=== PATIENT | female | born 1950 | race African-American/Black ===

== ENCOUNTER 2016-11-02 14:51 | Emergency (ER) | payer MEDICARE ==
[~2016-11-02 14:51] MED LIST: AMLO10TA4 PO; ASPI-482 PO; ATEN50TA PO; B12/1TAB3 PO; BIOT1000 PO; CEPH-264 PO; CRAN400C PO; HYDR-2666 PO; LISI1TAB7 PO; MULT-208 PO; PARO10TA24 PO; PHEN100T82 PO
[2016-11-02 15:16] VITALS: BP 134/90
[2016-11-02] MEDS ORDERED: PENI500T PO (15:40)
[2016-11-02] MEDS ORDERED: OXYC5CAP3 PO (15:40)
--- NOTE | 2016-11-02 15:40 | PHYS DOC ---
Past Medical History Past Medical History: Depression, Hypertension Additional Past Medical Histor: polycystic kidney disease,chronic UTI's Past Surgical History: Appendectomy, Cholecystectomy, Hysterectomy, Tonsillectomy Additional Past Surgical Histo: HYSTERECTOMY Alcohol Use: None Drug Use: None Adult General Chief Complaint Chief Complaint: DENTAL PROBLEM HPI HPI Patient is a 66 year old female who presents with dental pain. The patient reports approximately 1 month history of increased dental pain to left maxillary and mandibular teeth with severe decay and chipped teeth. Reports increased facial swelling over the past 2 days. Denies fevers or chills, trismus , difficulty breathing or swallowing. He has been taking hydrocodone at home ( which she is prescribed monthly for knee pain) without relief of symptoms. Does not have a dentist. Review of Systems Review of Systems Constitutional: Denies fever or chills HENT: Reports dental pain Respiratory: Denies cough or shortness of breath Cardiovascular: Denies chest pain GI: Denies abdominal pain, nausea, vomiting Integument: Denies rash or skin lesions Neurologic: Denies headache Current Medications Current Medications Current Medications Medications (Trade) Dose Ordered Sig/Malu Start Time Stop Time Status Last Admin Dose Admin Oxycodone HCl (Roxicodone) 5 mg 1X ONCE 11/02/16 16:00 11/02/16 16:01 DC Allergies Allergies Allergies Coded Allergies Type Severity Reaction Last Updated Verified adhesive tape Allergy Intermediate 02/02/16 Yes Physical Exam Physical Exam Constitutional: Well developed, well nourished, no acute distress, non-toxic appearance. HENT: Normocephalic, atraumatic, bilateral external ears normal, oropharynx moist, nose normal. Numerous absent teeth, tooth #9 and 22 severely decayed with surrounding gingival erythema, no palpable abscess, no trismus, minimal left-sided facial swelling Eyes: conjunctiva normal, no discharge. Cardiovascular: no edema. Lungs & Thorax: no respiratory distress. Abdomen: nondistended. Skin: Warm, dry, Extremities: No deformity Neurologic: Alert and oriented X 3 Current Patient Data Vital Signs Vital Signs Date Time Temp Pulse Resp B/P (MAP) Pulse Ox O2 Delivery O2 Flow Rate FiO2 11/02/16 15:16 98.3 87 16 98 Room Air 98.3 EKG EKG [] Radiology/Procedures Radiology/Procedures [] Course & Med Decision Making Course & Med Decision Making Pertinent Labs and Imaging studies reviewed. (See chart for details) The patient presents with dental pain. Gave oxycodone here for pain. She has a family member to drive her home. Recommend follow up with dentist as soon as possible. Gave prescription for penicillin VK, & oxycodone to take as needed for severe breakthrough pain, 10 tablets, additional pain medication not be given through the emergency department for same complaint. Provided with dental clinic list. Return to the emergency department for difficulty breathing or swallowing, or any otherwise worsening condition. Discharged home in stable condition. [] Dragon Disclaimer Dragon Disclaimer This electronic medical record was generated, in whole or in part, using a voice recognition dictation system. Departure Departure Impression: Primary Impression: Dental infection Disposition: HOME, SELF-CARE Condition: STABLE Referrals: BENITA ALVARADO Jr, MD (PCP) Patient Instructions: Dental Pain, [id number] Additional Instructions: You were seen in the emergency department today for dental pain. Please take antibiotics & you may use pain medication as needed. No drinking alcohol or driving while taking this medication. Follow up as soon as possible with a dentist. Come back for difficulty breathing or swallowing, or any otherwise worsening condition. Scripts Oxycodone Hcl (OXYCODONE HCL) 5 Mg Capsule 5 MG PO Q6HRS Y for PAIN, #10 TAB 0 Refills Prov: AMARA BLANK MD 11/02/16 Penicillin V Potassium (PENICILLIN V POTASSIUM) 500 Mg Tablet 500 MG PO QID for 7 Days, TAB 0 Refills Prov: AMARA BLANK MD 11/02/16 AMARA BLANK MD November 02, 2016 15:40
[2016-11-02] MEDS ORDERED: oxyCODONE IR 5 MG TABLET PO ONE (16:00)
== END 2016-11-02 15:45 | disposition home or self-care (01) ==
LOC: ER 15:26
DX: K04.7 Periapical abscess without sinus (principal); I10 Essential (primary) hypertension; Q61.3 Polycystic kidney, unspecified; Z90.49 Acquired absence of other specified parts of digestive tract; Z90.710 Acquired absence of both cervix and uterus; Z87.440 Personal history of urinary (tract) infections; Z88.8 Allergy status to other drugs, medicaments and biological substances
CPT/HCPCS: 99283

== ENCOUNTER 2018-04-10 15:46 | Emergency (ER) | payer MEDICARE ==
[~2018-04-10] VITALS: Ht 170.2 cm; Wt 71.7 kg
[~2018-04-10 15:46] MED LIST changes: -HYDR-2666 PO; +HYDR-2758 PO; +OXYC5CAP PO; -PARO10TA24 PO; +PARO10TA57 PO; +PENI500T PO
[2018-04-10] MEDS: CYCLOBENZAPRINE 10 MG TABLET. PO ONE (16:13)
[2018-04-10] MEDS: NAPROXEN 500 MG TABLET PO STA (16:14)
[2018-04-10] MEDS: HYDROcodone/APAP 5/325MG 1 TAB TABLET PO ONE (16:14)
--- NOTE | 2018-04-10 16:17 | PHYS DOC ---
Past Medical History Past Medical History: Depression, Hypertension Additional Past Medical Histor: polycystic kidney disease,chronic UTI's Past Surgical History: Appendectomy, Cholecystectomy, Hysterectomy, Tonsillectomy Additional Past Surgical Histo: HYSTERECTOMY Alcohol Use: None Drug Use: None Adult General Chief Complaint Chief Complaint: LOWER EXT PAIN HPI HPI Patient is a 67 year old female with history of hypertension, depression, who presents today with 8 out of 10 left lateral hip pain that began yesterday. Patient states she was ambulating and her leg gave out. Patient denies falling. States pain is worse on weight bearing. Describes the pain as throbbing and intermittent. Review of Systems Review of Systems Constitutional: Denies fever or chills [] GI: Denies abdominal pain, nausea, vomiting, bloody stools or diarrhea [] : Denies dysuria or hematuria [] Musculoskeletal: Reports left lateral hip pain Integument: Denies rash or skin lesions [] Neurologic: Denies headache, focal weakness or sensory changes [] All other systems were reviewed and found to be within normal limits, except as documented in this note. Current Medications Current Medications Current Medications Medications (Trade) Dose Ordered Sig/Malu Start Time Stop Time Status Last Admin Dose Admin Acetaminophen/ Hydrocodone Bitart (Lortab 5/325) 2 tab 1X ONCE 04/10/18 16:15 04/10/18 16:16 DC 04/10/18 16:14 2 TAB Cyclobenzaprine HCl (Flexeril) 10 mg 1X ONCE 04/10/18 16:15 04/10/18 16:16 DC 04/10/18 16:13 10 MG Naproxen (Naprosyn) 500 mg 1X STAT 04/10/18 16:09 04/10/18 16:10 DC 04/10/18 16:14 500 MG Allergies Allergies Allergies Coded Allergies Type Severity Reaction Last Updated Verified adhesive tape Allergy Intermediate 02/02/16 Yes Physical Exam Physical Exam Constitutional: Well developed, well nourished, no acute distress, non-toxic appearance. [] Skin: Warm, dry, no erythema, no rash. [] Back: No tenderness, no CVA tenderness. [] Extremities: Diffuse tenderness on palpation of the left lateral proximal hip, full passive range of motion to the left hip, adequate internal rotation and external rotation of the left hip. +2 left pedal pulse. Cap refill less than 2 seconds the left lower extremity., no cyanosis, no clubbing, no edema. [] Neurologic: Alert and oriented X 3, normal motor function, normal sensory function, no focal deficits noted. [] Psychologic: Affect normal, judgement normal, mood normal. [] Current Patient Data Vital Signs Vital Signs Date Time Temp Pulse Resp B/P (MAP) Pulse Ox O2 Delivery O2 Flow Rate FiO2 04/10/18 16:04 97.6 67 18 152/79 (103) 96 Room Air 97.6 EKG EKG [] Radiology/Procedures Radiology/Procedures []PROCEDURE: HIP LEFT 2V WITH PELVIS Single view pelvis and two-view left femur dated 04/10/2018. No comparison available. Clinical data indication: Pain. Unable to bear weight. History of left hip nailing. FINDINGS: single AP view pelvis shows normal bony alignment. No displaced fracture. The pelvic ring is intact. Mild hypertrophic change of the pubic symphysis. 2 views of left femur show an anterior grade intramedullary nail with interlocking screw at the femoral neck. There is deformity of the midshaft femur consistent with old healed fracture.There is cerclage wiring and pins at the patella. Mild degenerative change of the left knee joint. No periostitis or bone destruction. No new fracture identified. IMPRESSION: 1. No acute radiographic abnormality. 2. Status post ORIF left femur fracture and left patellar fracture. Electronically signed by: Lalito Mcrae MD (04/10/2018 4:58 PM) [id number] DICTATED and SIGNED BY: LALITO MCRAE MD DATE: 04/10/18 1652 Course & Med Decision Making Course & Med Decision Making Pertinent Labs and Imaging studies reviewed. (See chart for details) This is a 67-year-old female patient presenting to the ED today with left lateral hip pain, no known injury. Left hip, pelvic x-rays interpreted by radiologist are negative for any acute findings. Patient was discharged with instructions to follow-up with her orthopedic doctor next week. Ice elevation encouraged. Dragon Disclaimer Dragon Disclaimer This electronic medical record was generated, in whole or in part, using a voice recognition dictation system. Departure Departure Impression: Primary Impression: Left hip pain Disposition: 01 HOME, SELF-CARE Condition: STABLE Referrals: BENITA ALVARADO Jr, MD (PCP) follow up with your doctor in one week Patient Instructions: Hip Pain Additional Instructions: You were evaluated in the emergency room for left hip pain. Your x-rays are negative for any acute findings. Try to ice and elevate the extremity. Take the prescribed medications as needed for pain. Scripts Cyclobenzaprine Hcl (CYCLOBENZAPRINE HCL) 10 Mg Tablet 1 TAB PO TID, #30 TAB Prov: VLAD LIZARRAGA APRN 04/10/18 Diclofenac Sodium (DICLOFENAC SODIUM) 50 Mg Tablet.dr 1 TAB PO BID, #20 TAB 0 Refills Prov: VLAD LIZARRAGA APRN 04/10/18 VLAD LIZARRAGA APRN Apr 10, 2018 16:17
--- NOTE | 2018-04-10 17:02 | RAD ---
Single view pelvis and two-view left femur dated 04/10/2018. No comparison available. Clinical data indication: Pain. Unable to bear weight. History of left hip nailing. FINDINGS: single AP view pelvis shows normal bony alignment. No displaced fracture. The pelvic ring is intact. Mild hypertrophic change of the pubic symphysis. 2 views of left femur show an anterior grade intramedullary nail with interlocking screw at the femoral neck. There is deformity of the midshaft femur consistent with old healed fracture.There is cerclage wiring and pins at the patella. Mild degenerative change of the left knee joint. No periostitis or bone destruction. No new fracture identified. IMPRESSION: 1. No acute radiographic abnormality. 2. Status post ORIF left femur fracture and left patellar fracture. Electronically signed by: Lalito Mcrae MD (04/10/2018 4:58 PM) [id number]
[2018-04-10] MEDS ORDERED: CYCL10TA2 PO (17:16)
[2018-04-10] MEDS ORDERED: DICL50TA4 PO (17:16)
[2018-04-10 17:44] VITALS: BP 138/84
== END 2018-04-10 17:45 | disposition home or self-care (01) ==
LOC: ER 15:46
DX: M25.552 Pain in left hip (principal); I10 Essential (primary) hypertension; Z90.89 Acquired absence of other organs; Z90.49 Acquired absence of other specified parts of digestive tract; Z90.710 Acquired absence of both cervix and uterus; Z88.8 Allergy status to other drugs, medicaments and biological substances; X50.9XXA Other and unspecified overexertion or strenuous movements or postures, initial encounter; Y93.89 Activity, other specified; Y92.89 Other specified places as the place of occurrence of the external cause; Y99.8 Other external cause status
CPT/HCPCS: 73502; 99284

== ENCOUNTER 2019-05-02 20:23 | Emergency (ER) | payer MEDICARE, OTHER ==
[~2019-05-02] VITALS: Ht 172.7 cm; Wt 79.4 kg
[~2019-05-02 20:23] MED LIST changes: +CYCL10TA2 PO; +DICL50TA4 PO; -HYDR-2758 PO; +HYDR-2761 PO; +HYDR-3164 PO; +LISI-130 PO; +LISI1TAB20 PO; -LISI1TAB7 PO; +ONDA4TAB12 PO; +POLY17PO29 PO; +PRED20TA PO; +TAMS0.4C97 PO; +TIZA4CAP PO
[2019-05-02 20:48] LABS: BASO # 0.1 x10^3/uL (0.0-0.2); BASO % 1 % (0-3); EOS % 0 % (0-3); HEMATOCRIT 44.8 % (36.0-47.0); HEMOGLOBIN 14.9 g/dL (12.0-15.5); LYMPH # 1.6 x10^3/uL (1.0-4.8); LYMPH % 15 % (24-48); MEAN CORPUSCULAR HEMOGLOBIN 32 pg (25-35); MEAN CORPUSCULAR HGB CONC 33 g/dL (31-37); MEAN CORPUSCULAR VOLUME 97 fL (79-100); MONO # 0.4 x10^3/uL (0.0-1.1); MONO % 4 % (0-9); NEUT # 8.4 x10^3/uL (1.8-7.7); NEUT % 80 % (31-73); PLATELET COUNT 326 x10^3/uL (140-400); RED BLOOD COUNT 4.64 x10^6/uL (3.50-5.40); RED CELL DISTRIBUTION WIDTH 14.3 % (11.5-14.5); WHITE BLOOD COUNT 10.6 x10^3/uL (4.0-11.0)
[2019-05-02 20:49] LABS: BILIRUBIN,URINE NEGATIVE (NEG); CLARITY,URINE CLEAR; COLOR,URINE YELLOW; NITRITE,URINE NEGATIVE (NEG); PROTEIN,URINE 30 mg/dL (NEG-TRACE); UROBILINOGEN,URINE 0.2 mg/dL (0.2 mg/dL)
[2019-05-02 20:56] LABS: BARBITURATES NEG (NEG); BENZODIAZEPINES NEG (NEG); CANNABINOIDS POS (NEG); COCAINE NEG (NEG); METHADONE NEG (NEG); OPIATES NEG (NEG); PHENCYCLIDINE POS (NEG)
[2019-05-02 20:57] LABS: AMPHETAMINE/METHAMPHETAMINE NEG (NEG)
[2019-05-02 20:59] LABS: BACTERIA,URINE 0 /HPF (0-FEW); WBC,URINE OCC /HPF (0-4)
--- NOTE | 2019-05-02 21:38 | RAD ---
CT HEAD INDICATION: Altered mental status COMPARISON: None Available. Exposure: One or more of the following individualized dose reduction techniques were utilized for this examination: 1. Automated exposure control 2. Adjustment of the mA and/or kV according to patient size 3. Use of iterative reconstruction technique TECHNIQUE: 5 mm contiguous axial images were obtained from the skull base to the vertex in both bone and soft tissue algorithm. FINDINGS: No abnormal attenuation within the brain parenchyma. Cavum septum pellucidum identified. No evidence of acute intracranial hemorrhage. No extra-axial fluid collections. There is minimal hyperintensity to the basilar artery tip. No mass effect or midline shift. Ventricular size is appropriate. Basal cisterns are patent. No fractures identified.Flores-white differentiation is preserved.Globes and orbits are within normal limits. Paranasal sinuses and mastoid air cells are clear. IMPRESSION: Minimal hyperintense appearing basilar artery tip most likely physiological however if there is clinical suspicion for basilar tip thrombus recommend CT angiography or MRA for further evaluation. Electronically signed by: Reymundo De Jesus MD (05/02/2019 9:35 PM) [facility]
--- NOTE | 2019-05-02 21:45 | RAD ---
Examination: 2 views of the left humerus and 2 views of the left forearm HISTORY: History of fall, altered mental status COMPARISON: None available Findings/ impression: There is medial displaced acute fracture of the supracondylar portion of the humerus. Severe degenerative changes at the humeroulnar joint with large osteophyte formation however evaluation is limited due to positioning. Recommend elbow radiographs for further evaluation.Intramedullary nail identified transfixing the old mid diaphyseal humerus fracture. Small osteophyte formation identified in the radial head. Electronically signed by: Reymundo De Jesus MD (05/02/2019 9:42 PM) [facility]
--- NOTE | 2019-05-02 21:53 | RAD ---
EXAM: CHEST 1 VIEW History: Altered mental status COMPARISON: None available. TECHNIQUE: Single portable radiograph of the chest FINDINGS: Mild cardiomegaly. Prominent appearing mediastinum could be secondary to tortuous aorta. Mild bibasilar lung airspace opacities likely atelectasis or infiltrates. IMPRESSION: Mild left lung base airspace opacities likely atelectasis or infiltrates. Electronically signed by: Reymundo De Jesus MD (05/02/2019 9:50 PM) [facility]
[2019-05-02 22:05] LABS: CALCIUM 10.4 mg/dL (8.5-10.1); CREATININE 1.9 mg/dL (0.6-1.0); POTASSIUM 3.6 mmol/L (3.5-5.1)
[2019-05-02 22:07] LABS: ALBUMIN 4.8 g/dL (3.4-5.0); DIRECT BILIRUBIN 0.1 mg/dL (0.0-0.2); MAGNESIUM 2.4 mg/dL (1.8-2.4); TOTAL BILIRUBIN 0.6 mg/dL (0.2-1.0); TOTAL PROTEIN 9.3 g/dL (6.4-8.2)
[2019-05-02 22:16] VITALS: BP 156/98
--- NOTE | 2019-05-02 22:36 | PHYS DOC ---
Past Medical History Past Medical History: Unknown Additional Past Medical Histor: UNABLE TO ASSESS Past Surgical History: Other Additional Past Surgical Histo: UNABLE TO ASSESS Adult General Chief Complaint Chief Complaint: ALTERED MENTAL STATUS HPI HPI Patient is a 68-year-old female who presents via EMS with report of altered mental status. Patient reportedly was found in a homeowner's yard sitting in a lawn chair. EMS indicates that one of the neighbors was familiar with the patient and states that they see the patient on regular basis. EMS states that patient has been nonverbal since they picked her up and patient is not answering any questions at this time. Additional history is limited at this time as jane maxwell is not willing to answer any questions.[] Review of Systems Review of Systems Constitutional: Denies fever or chills [] Respiratory: No obvious shortness of breath [] Cardiovascular: No additional information not addressed in HPI [] GI: No reported vomiting or diarrhea [] Unable to fully assess review of systems as patient is not answering questions. Allergies Allergies Allergies Coded Allergies Type Severity Reaction Last Updated Verified Unable to Assess 05/02/19 No Physical Exam Physical Exam Constitutional: Well developed, well nourished, no acute distress, non-toxic appearance. [] HENT: Normocephalic, atraumatic, bilateral external ears normal, oropharynx moist, no oral exudates, nose normal. [] Eyes: PERRLA, EOMI, conjunctiva normal, no discharge. [] Neck: Normal range of motion, no tenderness, supple, no stridor. [] Cardiovascular: Regular rate and rhythm[] Lungs & Thorax: Bilateral breath sounds clear to auscultation [] Abdomen: Bowel sounds normal, soft, no tenderness. [] Skin: Warm, dry, no erythema, no rash. [] Extremities: No tenderness, no cyanosis, no clubbing, ROM intact. [] Neurologic: Awake and alert, no obvious focal deficits noted. [] Current Patient Data Vital Signs Vital Signs Date Time Temp Pulse Resp B/P (MAP) Pulse Ox O2 Delivery O2 Flow Rate FiO2 05/02/19 22:16 114 96 05/02/19 20:23 96.8 12 179/109 (132) Room Air 96.8 Lab Values Laboratory Tests Test 05/02/19 20:40 05/02/19 21:15 05/02/19 21:45 White Blood Count 10.6 x10^3/uL (4.0-11.0) Red Blood Count 4.64 x10^6/uL (3.50-5.40) Hemoglobin 14.9 g/dL (12.0-15.5) Hematocrit 44.8 % (36.0-47.0) Mean Corpuscular Volume 97 fL (79-100) Mean Corpuscular Hemoglobin 32 pg (25-35) Mean Corpuscular Hemoglobin Concent 33 g/dL (31-37) Red Cell Distribution Width 14.3 % (11.5-14.5) Platelet Count 326 x10^3/uL (140-400) Neutrophils (%) (Auto) 80 % (31-73) H Lymphocytes (%) (Auto) 15 % (24-48) L Monocytes (%) (Auto) 4 % (0-9) Eosinophils (%) (Auto) 0 % (0-3) Basophils (%) (Auto) 1 % (0-3) Neutrophils # (Auto) 8.4 x10^3/uL (1.8-7.7) H Lymphocytes # (Auto) 1.6 x10^3/uL (1.0-4.8) Monocytes # (Auto) 0.4 x10^3/uL (0.0-1.1) Eosinophils # (Auto) 0.0 x10^3/uL (0.0-0.7) Basophils # (Auto) 0.1 x10^3/uL (0.0-0.2) Urine Collection Type Unknown Urine Color Yellow Urine Clarity Clear Urine pH 6.0 Urine Specific Bolton 1.015 Urine Protein 30 mg/dL (NEG-TRACE) Urine Glucose (UA) Negative mg/dL (NEG) Urine Ketones (Stick) Negative mg/dL (NEG) Urine Blood Negative (NEG) Urine Nitrite Negative (NEG) Urine Bilirubin Negative (NEG) Urine Urobilinogen Dipstick 0.2 mg/dL (0.2 mg/dL) Urine Leukocyte Esterase Negative (NEG) Urine RBC 1-2 /HPF (0-2) Urine WBC Occ /HPF (0-4) Urine Bacteria 0 /HPF (0-FEW) Urine Mucus Mod /LPF Urine Opiates Screen Neg (NEG) Urine Methadone Screen Neg (NEG) Urine Barbiturates Neg (NEG) Urine Phencyclidine Screen Pos (NEG) Urine Amphetamine/Methamphetamine Neg (NEG) Urine Benzodiazepines Screen Neg (NEG) Urine Cocaine Screen Neg (NEG) Urine Cannabinoids Screen Pos (NEG) Urine Ethyl Alcohol Neg (NEG) Ammonia < 10 mcmol/L (11-34) L Sodium Level 147 mmol/L (136-145) H Potassium Level 3.6 mmol/L (3.5-5.1) Chloride Level 103 mmol/L (98-107) Carbon Dioxide Level 30 mmol/L (21-32) Anion Gap 14 (6-14) Blood Urea Nitrogen 22 mg/dL (7-20) H Creatinine 1.9 mg/dL (0.6-1.0) H Estimated GFR (Cockcroft-Gault) 32.0 Glucose Level 74 mg/dL (70-99) Calcium Level 10.4 mg/dL (8.5-10.1) H Magnesium Level 2.4 mg/dL (1.8-2.4) Total Bilirubin 0.6 mg/dL (0.2-1.0) Direct Bilirubin 0.1 mg/dL (0.0-0.2) Aspartate Amino Transferase (AST) 38 U/L (15-37) H Alanine Aminotransferase (ALT) 38 U/L (14-59) Alkaline Phosphatase 128 U/L (46-116) H Troponin I Quantitative < 0.017 ng/mL (0.000-0.055) AU-Grx-N-Type Natriuretic Peptide 6665 pg/mL (0-124) H Total Protein 9.3 g/dL (6.4-8.2) H Albumin 4.8 g/dL (3.4-5.0) Laboratory Tests 05/02/19 20:40 Laboratory Tests 05/02/19 21:45 EKG EKG [] Radiology/Procedures Radiology/Procedures [] Course & Med Decision Making Course & Med Decision Making Pertinent Labs and Imaging studies reviewed. (See chart for details) Patient moved to room upon arrival was evaluated by ER medical staff after which an IV was established and blood work drawn. X-ray imaging of the left arm which is noted to be in a posterior splint was obtained. Initially patient was not communicating with staff; however, after approximately half hour, patient was very verbal in speaking with any staff who would into the room. Regarding patient's left arm, patient did inform staff that splint was placed at [facility]. Patient is not able to provide initial onset of injury to left elbow. Upon completion of workup, patient found to be standing up in room, getting dressed. I reviewed findings of workup with patient and recommended ad mission and to this facility so that she could be further evaluated by orthopedics for her fracture. Patient refused any further intervention at this time to include recent splinting and indicated that she wanted to sign out AGAINST MEDICAL ADVICE. Patient indicates that she understands that she needs to see orthopedist for elbow and states that she will schedule follow-up appointment with orthopedist who had performed surgery on her in the past. Dragon Disclaimer Dragon Disclaimer This electronic medical record was generated, in whole or in part, using a voice recognition dictation system. Departure Departure Impression: Primary Impression: Phencyclidine (PCP) intoxication Additional Impression: Supracondylar fracture of humerus, closed Disposition: 07 AGAINST MEDICAL ADVICE Condition: STABLE Referrals: NO PCP (PCP) Problem Qualifiers Primary Impression: Phencyclidine (PCP) intoxication Complication of substance-induced condition: with unspecified complication Qualified Codes: F16.929 - Hallucinogen use, unspecified with intoxication, unspecified Additional Impression: Supracondylar fracture of humerus, closed Encounter type: subsequent encounter Laterality: left Fracture healing: with delayed healing Qualified Codes: S42.412G - Displaced simple supracondylar fracture without intercondylar fracture of left humerus, subsequent encounter for fracture with delayed healing LAXMI ESTRADA Jr. DO May 02, 2019 22:36
--- NOTE | 2019-05-03 07:39 | EKG ---
[facility] [address] [place] [address] Test Date: 2019-05-02 Test Time: 20:38:22 Pat Name: RUSSEL PUGA Department: Room: Gender: F [employer]: : 1950 Requested By: LAXMI ESTRADA Order Number: [id number] Reading MD: Measurements Intervals [place] Rate: 104 P: VT: QRS: -22 QRSD: 116 T: -30 QT: 380 QTc: 506 Interpretive Statements ATRIAL FLUTTER LEFTWARD AXIS INCOMPLETE RIGHT BUNDLE BRANCH BLOCK T ABNORMALITY IN INFERIOR LEADS ABNORMAL ECG No previous ECG available for comparison
[2019-05-03] MEDS ORDERED: LIDOCAINE 2% PF 5 ML VIAL. ONE (11:26)
[2019-05-03] MEDS ORDERED: PROPOFOL 20 ML IV ONE (11:26)
== END 2019-05-02 22:25 | disposition left against medical advice (07) ==
LOC: ER 20:23 → MERGE 20:23 → EDBD 20:23 → ER 22:25
DX: S42.412G Displaced simple supracondylar fracture without intercondylar fracture of left humerus, subsequent encounter for fracture with delayed healing (principal); F16.929 Hallucinogen use, unspecified with intoxication, unspecified; R41.82 Altered mental status, unspecified; R51 Headache; X58.XXXD Exposure to other specified factors, subsequent encounter
CPT/HCPCS: 36415; 51701; 70450; 71045; 73060; 73090; 80048; 80076; 80307; 81001; 82140; 83735; 83880; 84484; 85025; 93005; J2001; J2704; 99285-25